=== PATIENT | female | born 1930 | race Caucasian/White ===

== ENCOUNTER 2021-08-18 11:52 | Inpatient (IN) | payer MEDICARE, OTHER ==
[~2021-08-18] VITALS: Ht 147.3 cm; Wt 49.9 kg
--- NOTE | 2021-08-18 12:14 | NUR ---
Dr Guzman evaluated the pt.
[2021-08-18] MEDS ORDERED: DEXILANT (12:28)
[2021-08-18] MEDS ORDERED: LEVOTHYROXIN (12:28)
[2021-08-18] MEDS ORDERED: LOSARTAN HCTZ (12:28)
[2021-08-18] MEDS ORDERED: AZELASTINE HCL (12:28)
[2021-08-18] MEDS ORDERED: SERTRALINE (12:28)
[2021-08-18] MEDS ORDERED: ROSUVASTATIN (12:28)
[2021-08-18] MEDS ORDERED: ALENDRONATE (12:28)
[2021-08-18] MEDS ORDERED: NTG (12:28)
[2021-08-18] MEDS ORDERED: METOPROLOL (12:28)
[2021-08-18] MEDS ORDERED: DONEPEZIL (12:28)
[2021-08-18 12:45] LABS: MEAN CORPUSCULAR HEMOGLOBIN 27.6 uug (24.7-32.8); MEAN CORPUSCULAR VOLUME 84.6 fL (75.5-95.3); PLATELET COUNT (AUTO) 228 K/uL (179-408)
[2021-08-18 12:58] LABS: CARBON DIOXIDE 26 mmol/L (21-32); CHLORIDE 104 mmol/L (98-107); CREATININE 1.5 mg/dL (0.6-1.3); GLUCOSE 93 mg/dL (74-106); POTASSIUM 3.5 mmol/L (3.5-5.1); UREA NITROGEN, BLOOD 24 mg/dL (7-18)
[2021-08-18] MEDS ORDERED: IV NORMAL SALINE 1000 ML BAG IV ONE (13:15)
[2021-08-18 14:12] LABS: *BILIRUBIN,URIN NEGATIVE (NEGATIVE); *BLOOD, URINE 1+ (NEGATIVE); *COLOR,URINE YELLOW (YELLOW); *KETONES,URINE NEGATIVE (NEGATIVE); *UROBILINOGEN,URINE 0.2 E.U./dl (NORMAL); NITRITE, URINE NEGATIVE (NEGATIVE); UGLUCOSE NEGATIVE (NEGATIVE)
[2021-08-18 14:23] LABS: *CLARITY,URINE SLIGHTLY HAZY (CLEAR)
[2021-08-18 14:24] LABS: BACTERIA,URINE FEW /HPF (NONE SEEN); LEUKOCYTE ESTERASE ,URINE TRACE (NEGATIVE); SQUAMOUS EPITHELIAL CELL,UR FEW /HPF (NONE SEEN)
[2021-08-18] MEDS ORDERED: Z GUARD REMEDY PASTE 57 GM TUBE TOP PRN (16:00)
[2021-08-18] MEDS ORDERED: ONDANSETRON 4 MG/2 ML VIAL IV PRN (16:00)
[2021-08-18] MEDS ORDERED: ACETAMINOPHEN 325 MG TABLET PO PRN (16:00)
--- NOTE | 2021-08-18 16:03 | NUR ---
Patient is resting comfortably in bed with eyes closed, NAD noted.
[2021-08-18] MEDS: IV NS 1000 ML 1,000 ML IV PRN (16:30)
[2021-08-18] MEDS ORDERED: CEFTRIAXONE 1 G in IV DEXTROSE 5% 50 ML IV ONE (16:30)
[2021-08-18] MEDS ORDERED: CEFTRIAXONE /D5W 50ML IVPB **ER PYXIS IV ONE (17:20)
--- NOTE | 2021-08-18 18:42 | NUR ---
PT continant of urine, able to use bedpan. Urine collected and sent to LAB.
--- NOTE | 2021-08-18 19:34 | NUR ---
received pt awake alert.
[2021-08-18 20:00] VITALS: BP 167/93
[2021-08-18 20:21] LABS: CARBON DIOXIDE 27 mmol/L (21-32); CHLORIDE 108 mmol/L (98-107); CREATININE 1.4 mg/dL (0.6-1.3); GLUCOSE 90 mg/dL (74-106); POTASSIUM 3.2 mmol/L (3.5-5.1); UREA NITROGEN, BLOOD 21 mg/dL (7-18)
--- NOTE | 2021-08-18 21:10 | NUR ---
pt transported to room 301, Yolie MERCEDES in room to assist, Will RN aware of patients arrival.
--- NOTE | 2021-08-18 21:20 | NUR ---
ADMITTED PATIENT ON TELE FLOOR UNDER THE CARE OF DR. KUNZ . PATIENT HAS NO COMPLAIN OF PAIN, ASSISTED TO THE TOILET VOID FREELY. PATIENT WALK WITH ASSIST, AMBULATE SLOWLY CONT TO MONITOR.
[2021-08-19] MEDS: IV NS 1000 ML 1,000 ML IV PRN (02:00)
[2021-08-19 04:00] VITALS: BP 154/70
[2021-08-19 06:45] LABS: HEMATOCRIT 37.3 % (31.2-41.9); MEAN CORPUSCULAR HEMOGLOBIN 27.7 uug (24.7-32.8); PLATELET COUNT (AUTO) 198 K/uL (179-408)
[2021-08-19 07:11] LABS: BILIRUBIN,TOTAL 0.5 mg/dL (0.2-1.0); CREATININE 1.3 mg/dL (0.6-1.3); MAGNESIUM 1.3 mg/dL (1.8-2.4); PHOSPHOROUS 2.7 mg/dL (2.5-4.9); POTASSIUM 3.1 mmol/L (3.5-5.1); TOTAL PROTEIN, SERUM 7.3 g/dL (6.4-8.2)
--- NOTE | 2021-08-19 07:44 | NUR ---
CALCIUM LEVEL IS 16.3 RECEIVED FROM THE LAB CRITICAL AND REPORTED TO DR THURMAN WITH NO NEW ORDERS AT THIS TIME.
[2021-08-19] MEDS ORDERED: FUROSEMIDE 40 MG/4 ML VIAL IV ONE (09:30)
[2021-08-19] MEDS ORDERED: CALCITONIN SALMON 400 UNIT/2 ML SQ SCH (09:30)
[2021-08-19] MEDS: MAGNESIUM SULFATE/D5W 100 ML IV SCH ×2 (09:46→10:45)
--- NOTE | 2021-08-19 09:59 | NUR ---
POTASSIUM LEVEL IS 3.1 AND MAG LEVEL IS 1.3 WITH NEW ORDERS FOR MAGNESSIUM AND POTASSIUM REPLACEMENT AND NOTED.
[2021-08-19] MEDS ORDERED: PAMIDRONATE DISODIUM 90 MG in IV NORMAL SALINE 500 ML IV ONE ×2 (11:00→14:00)
[2021-08-19 11:07] LABS: CORTISOL AM 23.4 ug/dL (6.2-19.4)
[2021-08-19] MEDS: POTASSIUM CHLORIDE 50 ML IV SCH ×3 (11:59→14:33)
[2021-08-19 12:00] VITALS: BP 168/58
[2021-08-19 16:00] VITALS: BP 180/80
[2021-08-19 18:10] VITALS: BP 178/79
--- NOTE | 2021-08-19 18:10 | NUR ---
BLOOD PRESSURE RECHECKED AT THIS TIME PATIENT GETS UNCOOPERATIVE PULLING AWAY DURING BLOOD PRESSURE CHECKS B/P IS 178/79 NO SYMPTOMS AT THIS TIME DAUGHTER SHIV WAS HERE AND JUST LEFT MESSAGE LEFT FOR DR THURMAN AWAITING FOR ORDERS.
--- NOTE | 2021-08-19 18:40 | NUR ---
DR THURMAN RETURNED CALL WITH NEW ORDERS AND NOTED.
[2021-08-19] MEDS ORDERED: CLONIDINE HCL 0.1 MG TABLET PO PRN (18:45)
[2021-08-19] MEDS ORDERED: hydrALAZINE HCL 25 MG TABLET PO PRN ×2 (19:45→20:15)
[2021-08-19 20:00] VITALS: BP 177/103
--- NOTE | 2021-08-19 20:00 | NUR ---
Patient is in bed, restless, attempting to get out of bed. Patient is [place] speaking per day nurse. Elevated B/PO noted, Hydralazine PRN and clonodine noted. Per day shift, [employer] prefers Hydralazine over clonidine. No SOB noted. IV to left FA intact and patent. On telemetry, NSR. Safety measures initiated. Call light within reach.
[2021-08-19] MEDS: IV LACTATED RINGERS SOLUTION 1,000 ML IV PRN (20:12)
[2021-08-19] MEDS: hydrALAZINE HCL 50 MG TABLET PO SCH (22:15)
[2021-08-19] MEDS: AMLODIPINE 5 MG TABLET PO SCH (23:30)
[2021-08-20 00:15] VITALS: BP 170/68
[2021-08-20 04:04] VITALS: BP 151/70
[2021-08-20 05:45] VITALS: BP 168/65
[2021-08-20] MEDS: hydrALAZINE HCL 50 MG TABLET PO SCH ×3 (05:52→21:46)
--- NOTE | 2021-08-20 06:34 | NUR ---
Patient awake during night, did not sleep. Attempting to get out of bed most of the night. Patient pulled out IV to left FA, replaced with IV to right hand. . In no respiratory distress. Telemetry is in NSR with bundle branch block. blood pressure remains elevated, treated with Hydralazine and amlodipine as ordered. Safety measures continued. Bed alarm on. Call light within reach.
[2021-08-20] MEDS: IV LACTATED RINGERS SOLUTION 1,000 ML IV PRN (06:58)
--- NOTE | 2021-08-20 08:00 | NUR ---
in bed resting no distress noted, tele SR 60's repositioned and made comfortable, needs attended, safety measures maintained
[2021-08-20 08:41] LABS: CREATININE 1.3 mg/dL (0.6-1.3)
[2021-08-20] MEDS: FUROSEMIDE 20 MG/2 ML VIAL IV SCH (09:26)
[2021-08-20] MEDS: AMLODIPINE 5 MG TABLET PO SCH ×2 (09:31→20:27)
[2021-08-20] MEDS: CEFTRIAXONE 1 G in IV DEXTROSE 5% 50 ML IV SCH (09:52)
[2021-08-20 10:55] LABS: POTASSIUM 2.7 mmol/L (3.5-5.1)
[2021-08-20] MEDS ORDERED: POTASSIUM CHLORIDE 20 MEQ TAB.PRT.SR PO ONE (11:15)
[2021-08-20] MEDS ORDERED: POTASSIUM CHLORIDE 50 ML IV SCH (11:15)
[2021-08-20 12:00] VITALS: BP 125/76
[2021-08-20 16:00] VITALS: BP 111/67
[2021-08-20] MEDS ORDERED: PAMIDRONATE DISODIUM 90 MG in IV NORMAL SALINE 500 ML IV ONE (17:45)
[2021-08-20] MEDS: CINACALCET HCL 30 MG TABLET PO SCH (18:36)
[2021-08-20] MEDS: IV 1/2 NS + KCL 20 MEQ BAG 1,000 ML IV PRN (18:37)
--- NOTE | 2021-08-20 18:55 | NUR ---
no distress noted, pt confused and pulled out iv x1 and restarted, mittens placed with order, poor intake, all needs attended and met, bed alarm on
--- NOTE | 2021-08-20 19:00 | NUR ---
Sleeping comfortably during initial rounds with HOB elevated. No apparent distress noted. IVF infusing well on left wrist. No s/s of infiltration. Bilateral hand mitten in used. No s/s circulation impairment noted. Safety measures and fall prevention maintained. Continue care as planned.
[2021-08-20 20:11] VITALS: BP 115/62
[2021-08-21 00:37] VITALS: BP 145/74
[2021-08-21] MEDS: IV 1/2 NS + KCL 20 MEQ BAG 1,000 ML IV PRN ×2 (02:41→17:48)
[2021-08-21 05:18] VITALS: BP_SYST 158
[2021-08-21] MEDS: hydrALAZINE HCL 50 MG TABLET PO SCH ×3 (05:52→22:09)
[2021-08-21 05:56] LABS: MEAN CORPUSCULAR HEMOGLOBIN 28.1 uug (24.7-32.8); MEAN CORPUSCULAR VOLUME 84.5 fL (75.5-95.3); PLATELET COUNT (AUTO) 205 K/uL (179-408)
[2021-08-21 06:09] LABS: ALANINE AMINOTRANSFERASE 28 U/L (14-59); ALKALINE PHOSPHATASE 127 U/L (50-136); ASPARTATE AMINOTRANSFERASE 26 U/L (15-37); BILIRUBIN,TOTAL 0.4 mg/dL (0.2-1.0); CARBON DIOXIDE 25 mmol/L (21-32); CHLORIDE 107 mmol/L (98-107); CREATININE 1.4 mg/dL (0.6-1.3); GLUCOSE 102 mg/dL (74-106); MAGNESIUM 1.4 mg/dL (1.8-2.4); PHOSPHOROUS 1.7 mg/dL (2.5-4.9); POTASSIUM 3.6 mmol/L (3.5-5.1); TOTAL PROTEIN, SERUM 6.6 g/dL (6.4-8.2); UREA NITROGEN, BLOOD 23 mg/dL (7-18)
--- NOTE | 2021-08-21 06:18 | NUR ---
Received a critical value of Calcium from [facility]=13.4. Will endorse to oncoming nurse.
--- NOTE | 2021-08-21 06:27 | NUR ---
Seen by Dr Pagan today. Relayed Calcium result.
[2021-08-21] MEDS: FUROSEMIDE 20 MG/2 ML VIAL IV SCH (09:43)
[2021-08-21] MEDS: CEFTRIAXONE 1 G in IV DEXTROSE 5% 50 ML IV SCH (09:43)
[2021-08-21] MEDS: CINACALCET HCL 30 MG TABLET PO SCH (09:43)
[2021-08-21] MEDS: AMLODIPINE 5 MG TABLET PO SCH ×2 (09:54→20:14)
[2021-08-21] MEDS ORDERED: POTASSIUM PHOSPHATE MM 7.5 MMOL in IV NORMAL SALINE 97.5 ML IV ONE (10:00)
[2021-08-21 10:06] LABS: *IMMUNOGLOBULIN G, SERUM 1094 mg/dL (586-1602); A/G RATIO 1.1 (0.7-1.7); ALBUMIN 3.6 g/dL (2.9-4.4); ALPHA-1-GLOBULIN 0.3 g/dL (0.0-0.4); ALPHA-2-GLOBULIN 0.9 g/dL (0.4-1.0); GAMMA GLOBULIN 1.1 g/dL (0.4-1.8); GLOBULIN, TOTAL 3.3 g/dL (2.2-3.9); IMMUNOGLOBULIN A, SERUM 367 mg/dL (64-422); IMMUNOGLOBULIN M, SERUM 63 mg/dL (26-217); M-SPIKE Not Observed g/dL (Not Observed)
[2021-08-21 12:00] VITALS: BP 113/68
[2021-08-21] MEDS: MAGNESIUM SULFATE/D5W 100 ML IV SCH ×2 (12:39→15:43)
[2021-08-21 16:00] VITALS: BP 130/62
[2021-08-21 20:00] VITALS: BP 143/68
[2021-08-22] VITALS: BP 151/59
[2021-08-22] MEDS: IV 1/2 NS + KCL 20 MEQ BAG 1,000 ML IV PRN ×2 (02:51→13:11)
[2021-08-22 04:00] VITALS: BP 125/68
[2021-08-22] MEDS: hydrALAZINE HCL 50 MG TABLET PO SCH ×2 (05:46→15:48)
[2021-08-22 07:19] LABS: CARBON DIOXIDE 27 mmol/L (21-32); CHLORIDE 105 mmol/L (98-107); CREATININE 1.4 mg/dL (0.6-1.3); GLUCOSE 80 mg/dL (74-106); MAGNESIUM 2.1 mg/dL (1.8-2.4); PHOSPHOROUS 1.7 mg/dL (2.5-4.9); POTASSIUM 3.5 mmol/L (3.5-5.1); UREA NITROGEN, BLOOD 21 mg/dL (7-18)
[2021-08-22] MEDS: FUROSEMIDE 20 MG/2 ML VIAL IV SCH (08:45)
[2021-08-22] MEDS: CINACALCET HCL 30 MG TABLET PO SCH (08:45)
[2021-08-22] MEDS: AMLODIPINE 5 MG TABLET PO SCH (08:46)
[2021-08-22] MEDS: CEFTRIAXONE 1 G in IV DEXTROSE 5% 50 ML IV SCH (08:48)
[2021-08-22] MEDS ORDERED: MAGNESIUM OXIDE 400 MG TABLET PO ONE (09:00)
[2021-08-22] MEDS ORDERED: POTASSIUM PHOSPHATE MM 7.5 MMOL in IV NORMAL SALINE 97.5 ML IV ONE (11:00)
[2021-08-22 11:05] VITALS: BP 122/66
[2021-08-22 15:26] VITALS: BP 144/79
[2021-08-22 15:48] VITALS: BP 144/79
[2021-08-22] MEDS ORDERED: AMLO-212 PO (16:12)
[2021-08-22] MEDS ORDERED: CINA30TA2 PO (16:12)
[2021-08-23] MEDS ORDERED: NEPRO (VANILLA) 237 ML CAN PO SCH (09:00)
[2021-08-25 14:06] LABS: *VITAMIN D 25-OH, D2 <1.0 ng/mL (.)
== END 2021-08-22 18:00 | disposition home or self-care (01) | DRG 643 ==
LOC: ER 11:52 → TRANSITION 15:48 → MEDSURG3 20:36 → TELE3 20:39 → MEDSURG3 21:06 → TELE3 21:18
PROVIDERS: ADMIT Internal Medicine; ATTEND Internal Medicine
DX: E21.0 Primary hyperparathyroidism (principal); G93.41 Metabolic encephalopathy; N17.0 Acute kidney failure with tubular necrosis; J69.0 Pneumonitis due to inhalation of food and vomit; I45.2 Bifascicular block; N39.0 Urinary tract infection, site not specified; D68.69 Other thrombophilia; Z20.822 Contact with and (suspected) exposure to COVID-19; D35.1 Benign neoplasm of parathyroid gland; E03.9 Hypothyroidism, unspecified; E78.5 Hyperlipidemia, unspecified; E86.1 Hypovolemia; E87.6 Hypokalemia; F01.50 Vascular dementia, unspecified severity, without behavioral disturbance, psychotic disturbance, mood disturbance, and anxiety; I10 Essential (primary) hypertension; I67.2 Cerebral atherosclerosis; M81.0 Age-related osteoporosis without current pathological fracture; Z91.81 History of falling; R53.1 Weakness; Z74.09 Other reduced mobility; R26.81 Unsteadiness on feet; W18.30XA Fall on same level, unspecified, initial encounter; Y93.9 Activity, unspecified; Y92.009 Unspecified place in unspecified non-institutional (private) residence as the place of occurrence of the external cause
CPT/HCPCS: 36415; 70030-TC; 70450; 70490; 71045; 82533; 82784; 83735; 83970; 84100; 84155; 84165; 84443; 85025; 86334; 87086; 93005; A4663; A6209; G0378; J0696; J1940; J2430; J3475; J3480; J3490; J7030; J7040; J7060; J7120